=== PATIENT | male | born 1975 | race Caucasian/White ===

== ENCOUNTER 2021-07-04 11:18 | Outpatient (CLI) | payer OTHER, SELFPAY ==
[2021-07-04 12:04] LABS: SARS-CoV-2 Ag Positive (Negative)
== END 2021-07-04 11:19 | disposition home or self-care (01) ==
LOC: CHSLAB 11:25
PROVIDERS: PCP Physician Assistant; Visit Provider Nurse Practitioner Psychiatric/Mental Health
DX: U07.1 COVID-19 (principal); R53.83 Other fatigue
CPT/HCPCS: 87426; C9803